=== PATIENT | female | born 1995 | race Caucasian/White ===

== ENCOUNTER 2022-11-01 04:10 | Inpatient (IN) | payer OTHER ==
[2022-11-01] MEDS ORDERED: Ondansetron PF 4 MG/2 ML Vial IVP PRN ×4 (05:30→21:50)
[2022-11-01] MEDS ORDERED: hydrALAZINE 20 MG/ML VIAL SLOW IVP PRN ×2 (05:30→21:50)
[2022-11-01] MEDS ORDERED: Promethazine HCl 25 MG/ML VIAL IM PRN ×3 (05:30→18:11)
[2022-11-01] MEDS ORDERED: Acetaminophen 500 MG TAB PO PRN (05:30)
[2022-11-01] MEDS ORDERED: Misoprostol 200 MCG TAB PR PRN ×2 (05:30→21:50)
[2022-11-01] MEDS ORDERED: Tranexamic Acid 1,000 MG in Sodium Chloride 0.9% 250 ML 250 ML IVPB PRN (05:30)
[2022-11-01] MEDS ORDERED: Methylergonovine 0.2 MG/ML VIAL IM PRN ×2 (05:30→21:50)
[2022-11-01] MEDS ORDERED: Docusate 100 MG CAP PO PRN (05:30)
[2022-11-01] MEDS ORDERED: Butorphanol Tartrate 1 MG/ML VIAL SLOW IVP PRN (05:30)
[2022-11-01] MEDS ORDERED: Ibuprofen 800 MG TAB PO PRN (05:33)
[2022-11-01] MEDS ORDERED: Lidocaine 1% (PF) 30 ML VIAL SC PRN (05:33)
[2022-11-01 05:50] LABS: Hemoglobin 13.4 g/dL (12.0-15.5); Mean Corpuscular HGB CONC 34.4 g/dL (32.0-36.0); Mean Corpuscular Hemoglobin 30.2 pg (27.0-33.0); Mean Corpuscular Volume 87.8 fl (81.6-98.3); Mean Platelet Volume 11.2 fl (7.4-10.4); Platelet Count 230 10x3/uL (150-450); RBC Distribution Width 13.7 % (11.5-14.5); Red Blood Cell (RBC) Count 4.44 10x6/uL (3.90-5.03)
[2022-11-01 05:55] VITALS: BMI 27.8
[2022-11-01] MEDS ORDERED: Fentanyl 2 mcg/Bup 0.1% Cadd 100 ML ONE (05:59)
[2022-11-01] MEDS ORDERED: NS w/ Oxytocin 30 units 500 ML IV SCH (06:00)
[2022-11-01 06:05] LABS: ALT (SGPT) 18 U/L (8-55); AST (SGOT) 19 U/L (5-34); Albumin 3.8 g/dL (3.5-5.0); Alkaline Phosphatase 110 U/L (40-110); Anion Gap 17 mmol/L (10-20); BUN (Urea Nitrogen) 7 mg/dL (7.0-18.7); Bilirubin, Total 0.8 mg/dL (0.2-1.2); Calc. Creatinine Clearance 164 mL/min (70-130); Calcium 9.1 mg/dL (7.8-10.44); Carbon Dioxide 16 mmol/L (22-29); Chloride 103 mmol/L (98-107); Estimated GFR 124; Globulin 2.8 g/dL (2.4-3.5); Glucose 112 mg/dL (70-105); Potassium 3.6 mmol/L (3.5-5.1); Protein, Total 6.6 g/dL (6.0-8.3); Sodium 132 mmol/L (136-145)
[2022-11-01 06:28] LABS: Syphilis Antibody Nonreactive (Nonreactive); Syphilis Antibody Index 0.04 S/CO (<1.00 Non-Reactive)
[2022-11-01 06:29] LABS: HBSAg Index 0.18 S/CO (0-0.99); Hep B Surf Ag Non-Reactive S/CO (NonReactive)
[2022-11-01] MEDS ORDERED: Lactated Ringer's 500 ML IV PRN (07:00)
[2022-11-01] MEDS ORDERED: ePHEDrine Sulfate 50 MG/10 ML VIAL SLOW IVP PRN (07:00)
[2022-11-01] MEDS ORDERED: Naloxone HCl 0.4 mg/ml Vial IVP PRN ×4 (07:00→18:11)
[2022-11-01] MEDS ORDERED: Fentanyl 2 mcg/Bupivacaine 0.1% Cassette 100 ML EPIDURAL SCH (07:00)
[2022-11-01] MEDS ORDERED: Communication Order-Pharmacy FS SCH ×2 (07:00→18:15)
[2022-11-01] MEDS ORDERED: Acetaminophen 325 MG TAB PO PRN (07:00)
[2022-11-01] MEDS ORDERED: Moisturizing Cream (Eucerin) 113 GM JAR TOP PRN ×2 (07:00→18:11)
[2022-11-01] MEDS ORDERED: diphenhydrAMINE 50 MG/ML VIAL IVP PRN ×2 (07:00→18:11)
[2022-11-01] MEDS ORDERED: Piperacillin/Tazobactam 3.375 GM in Sodium Chloride 0.9% 100 ML IVPB SCH (08:00)
[2022-11-01] MEDS ORDERED: Gentamicin 380 MG, Admixture Fee 1 EACH in Sodium Chloride 0.9% 100 ML IVPB SCH (09:00)
[2022-11-01 10:12] LABS: HIV (1/2) Antibody/Antigen Non-Reactive (NonReactive); HIV 1/2 INDEX 0.07 S/CO (<1.00)
[2022-11-01 10:15] LABS: SARS-CoV-2 NAA Rapid Test Not Detected (NotDetected)
[2022-11-01] MEDS: Piperacillin/Tazobactam 3.375 GM in Sodium Chloride 0.9% 100 ML IVPB SCH ×2 (12:19→20:11)
[2022-11-01] MEDS ORDERED: Azithromycin 500 MG VIAL ONE (16:24)
[2022-11-01] MEDS ORDERED: Morphine PF 10 MG/10 ML VIAL ONE (16:41)
[2022-11-01] MEDS ORDERED: Oxytocin 10 UNITS/ML VIAL ONE ×3 (16:41→17:54)
[2022-11-01] MEDS ORDERED: Ketorolac Tromethamine 30 MG/ML VIAL ONE (16:41)
[2022-11-01] MEDS ORDERED: Phenylephrine 40 MG/NS 250 ML 250 ML ONE (16:41)
[2022-11-01] MEDS ORDERED: Lidocaine 2% MPF 10 ML AMP (For Epidural Use) ONE (16:41)
[2022-11-01] MEDS ORDERED: Tranexamic Acid 1,000 MG/10 ML VIAL ONE (17:02)
[2022-11-01] MEDS ORDERED: Misoprostol 200 MCG TAB ONE (17:02)
[2022-11-01] MEDS ORDERED: Methylergonovine 0.2 MG/ML VIAL ONE (17:02)
[2022-11-01] MEDS ORDERED: Ondansetron PF 4 MG/2 ML Vial ONE (17:04)
[2022-11-01 17:28] LABS: RapidComm Collect By CBN; pH (Cord, venous) 7.406 (7.250-7.350)
[2022-11-01] MEDS ORDERED: Naloxone HCl 0.4 mg/ml Vial IV PRN (18:11)
[2022-11-01] MEDS ORDERED: Ondansetron HCl/PF 4 MG/2 ML Vial IVP PRN (18:11)
[2022-11-01] MEDS ORDERED: HYDROmorphone 2 MG/ML VIAL SLOW IVP PRN (18:11)
[2022-11-01] MEDS ORDERED: Meperidine HCl/PF 25 MG/ML VIAL SLOW IVP PRN (18:11)
[2022-11-01] MEDS ORDERED: Ketorolac Tromethamine 30 MG/ML VIAL IVP PRN (18:11)
[2022-11-01] MEDS ORDERED: Promethazine HCl 25 MG SUPP PR PRN (18:11)
[2022-11-01] MEDS ORDERED: Fentanyl 100 MCG/2 ML VIAL SLOW IVP PRN (18:11)
[2022-11-01] MEDS ORDERED: Ketorolac Tromethamine 30 MG/ML VIAL IVP SCH (18:15)
[2022-11-01] MEDS: Lactated Ringer's 1,000 ML IV SCH (19:02)
[2022-11-01] MEDS ORDERED: Boostrix 0.5 ML (Tdap) VIAL (>/=7 yrs of age) IM ONE (21:50)
[2022-11-01] MEDS ORDERED: Lanolin Ointment 7 GM TUBE TOP PRN (21:50)
[2022-11-01] MEDS ORDERED: diphenhydrAMINE 25 MG CAP PO PRN (21:50)
[2022-11-01] MEDS ORDERED: Ferrous Sulfate 325 MG TAB PO SCH (22:30)
[2022-11-02] MEDS: Simethicone Chewable 80 MG TAB PO PRN ×3 (04:30→21:20)
[2022-11-02] MEDS: Piperacillin/Tazobactam 3.375 GM in Sodium Chloride 0.9% 100 ML IVPB SCH ×3 (04:31→21:22)
[2022-11-02 06:25] LABS: Hemoglobin 11.5 g/dL (12.0-15.5); Mean Corpuscular HGB CONC 33.7 g/dL (32.0-36.0); Mean Corpuscular Hemoglobin 29.9 pg (27.0-33.0); Mean Corpuscular Volume 88.8 fl (81.6-98.3); Platelet Count 177 10x3/uL (150-450); RBC Distribution Width 13.9 % (11.5-14.5); Red Blood Cell (RBC) Count 3.84 10x6/uL (3.90-5.03); White Blood Cell (WBC) Count 14.6 10x3/uL (3.5-10.5)
[2022-11-02] MEDS ORDERED: Lidocaine 2% PF 5 ML VIAL ONE (08:00)
[2022-11-02] MEDS ORDERED: ePHEDrine Sulfate 50 MG/10 ML VIAL ONE (08:00)
[2022-11-02] MEDS ORDERED: Bupivacaine 0.25% HCL 30 ML VIAL ONE (08:00)
[2022-11-02] MEDS ORDERED: HYDROcodone/Acetaminophen 5/325 mg Tablet PO PRN ×2 (08:01)
[2022-11-02] MEDS: Prenatal Vitamin 1 TAB PO SCH (08:25)
[2022-11-02] MEDS ORDERED: Gentamicin Sulfate 380 MG in Sodium Chloride 0.9% 100 ML IVPB SCH (09:00)
[2022-11-02] MEDS ORDERED: Acetaminophen/Codeine 30-300mg Tablet PO PRN (10:49)
[2022-11-02] MEDS: Acetaminophen/Codeine 30-300mg Tablet PO PRN ×2 (15:12→21:21)
[2022-11-02] MEDS: Ferrous Sulfate 325 MG TAB PO SCH ×2 (15:43→21:54)
[2022-11-02] MEDS: Docusate 100 MG CAP PO SCH (21:20)
[2022-11-02] MEDS: Ibuprofen 800 MG TAB PO SCH (21:20)
[2022-11-03] MEDS: Acetaminophen/Codeine 30-300mg Tablet PO PRN ×2 (03:30→10:29)
[2022-11-03] MEDS: Ibuprofen 800 MG TAB PO SCH (05:19)
[2022-11-03] MEDS: Ferrous Sulfate 325 MG TAB PO SCH (09:52)
[2022-11-03] MEDS: Prenatal Vitamin 1 TAB PO SCH (10:29)
[2022-11-03] MEDS: Docusate 100 MG CAP PO SCH (10:29)
[2022-11-03 12:03] VITALS: BP 118/75; TEMP 98.3
[2022-11-05 09:07] LABS: RapidComm Collect By CBN
== END 2022-11-03 12:40 | disposition home or self-care (01) | DRG 787 ==
LOC: CSHLD/OP 04:10 → CSHLD 05:43 → CSHPP 20:59
PROVIDERS: ADMIT Obstetrics & Gynecology; ATTEND Obstetrics & Gynecology
PROC: 10D00Z1 Extraction of Products of Conception, Low, Open Approach (ICD-10-PCS; principal; 2022-11-01)
PROC: 10H07YZ Insertion of Other Device into Products of Conception, Via Natural or Artificial Opening (ICD-10-PCS; 2022-11-01)
DX: O42.12 Full-term premature rupture of membranes, onset of labor more than 24 hours following rupture (principal); O72.1 Other immediate postpartum hemorrhage; Z20.822 Contact with and (suspected) exposure to COVID-19; O48.0 Post-term pregnancy; Z3A.41 41 weeks gestation of pregnancy; Z37.0 Single live birth; O36.63X0 Maternal care for excessive fetal growth, third trimester, not applicable or unspecified; O62.0 Primary inadequate contractions; O69.81X0 Labor and delivery complicated by cord around neck, without compression, not applicable or unspecified; K43.9 Ventral hernia without obstruction or gangrene; O99.63 Diseases of the digestive system complicating the puerperium; Z90.49 Acquired absence of other specified parts of digestive tract; Z79.899 Other long term (current) drug therapy
CPT/HCPCS: 36415; 51702; 80053; 82805; 85027; 86780; 86850; 86900; 86901; 87340; 87389; 88305; 88307; J0456; J1580; J1885; J2001; J2274; J2405; J2543; J2590; J3490; S0020; U0002

== ENCOUNTER 2022-11-07 13:20 | Emergency (ER) | payer OTHER ==
[2022-11-07 14:59] LABS: #Eosinphils 0.2 10x3/uL (0.0-0.5); #Monocytes 0.6 10x3/uL (0.0-1.1); #Neutrophils 8.3 10x3/uL (1.5-8.4); %Basophils 0.3 % (0.0-2.0); %Eosinophils 1.3 % (0.0-6.0); %Lymphocytes 22.3 % (18.0-47.0); %Monocytes 5.2 % (0.0-10.0); Hemoglobin 13.4 g/dL (12.0-15.5); Mean Corpuscular HGB CONC 33.8 g/dL (32.0-36.0); Mean Corpuscular Hemoglobin 30.7 pg (27.0-33.0); Mean Corpuscular Volume 90.8 fl (81.6-98.3); Mean Platelet Volume 9.2 fl (7.4-10.4); Platelet Count 309 10x3/uL (150-450); RBC Distribution Width 13.2 % (11.5-14.5); Red Blood Cell (RBC) Count 4.37 10x6/uL (3.90-5.03); White Blood Cell (WBC) Count 11.9 10x3/uL (3.5-10.5)
[2022-11-07 15:23] LABS: ALT (SGPT) 37 U/L (8-55); AST (SGOT) 20 U/L (5-34); Albumin 3.8 g/dL (3.5-5.0); Alkaline Phosphatase 110 U/L (40-110); Anion Gap 17 mmol/L (10-20); BUN (Urea Nitrogen) 10 mg/dL (7.0-18.7); Bilirubin, Total 0.3 mg/dL (0.2-1.2); Calc. Creatinine Clearance 0 mL/min (70-130); Calcium 9.5 mg/dL (7.8-10.44); Carbon Dioxide 20 mmol/L (22-29); Chloride 110 mmol/L (98-107); Estimated GFR 113; Globulin 3.3 g/dL (2.4-3.5); Glucose 80 mg/dL (70-105); Potassium 3.8 mmol/L (3.5-5.1); Protein, Total 7.1 g/dL (6.0-8.3); Sodium 143 mmol/L (136-145)
== END 2022-11-07 16:12 | disposition home or self-care (01) ==
LOC: CSHERS 13:20
DX: I10 Essential (primary) hypertension (principal); D72.829 Elevated white blood cell count, unspecified
CPT/HCPCS: 80053; 85025; 99283

== ENCOUNTER 2022-11-19 09:34 | Outpatient (CLI) | payer OTHER ==
[2022-11-19] MEDS ORDERED: Iopamidol 300 61% 100 ML VIAL FS ONE (10:46)
== END 2022-11-19 09:35 | disposition home or self-care (01) ==
LOC: CSHCT 09:34
PROVIDERS: ATTEND Student in an Organized Health Care Education/Training Program
DX: C80.1 Malignant (primary) neoplasm, unspecified (principal); R18.8 Other ascites; N20.0 Calculus of kidney
CPT/HCPCS: 74177

== ENCOUNTER 2023-04-17 08:45 | Outpatient (CLI) | payer BC | END 2023-04-17 08:46 | disposition home or self-care (01) | LOC: CSHCT 08:45 | PROVIDERS: ATTEND Nurse Practitioner Family | DX: C56.9 Malignant neoplasm of unspecified ovary (principal); C48.2 Malignant neoplasm of peritoneum, unspecified | CPT/HCPCS: 74177 ==

== ENCOUNTER 2023-07-10 07:49 | Outpatient (CLI) | payer BC ==
[2023-07-10] MEDS ORDERED: Iopamidol 300 61% 100 ML VIAL FS ONE (09:24)
== END 2023-07-10 07:50 | disposition home or self-care (01) ==
LOC: CSHCT 07:49
PROVIDERS: ATTEND Nurse Practitioner Family
DX: C56.1 Malignant neoplasm of right ovary (principal)
CPT/HCPCS: 74177

== ENCOUNTER 2024-06-22 07:59 | Outpatient (CLI) | payer OTHER ==
[2024-06-22] MEDS ORDERED: Iopamidol 300 61% 100 ML VIAL FS ONE (09:45)
== END 2024-06-22 08:00 | disposition home or self-care (01) ==
LOC: CSHCT 07:59
PROVIDERS: ATTEND Obstetrics & Gynecology Gynecologic Oncology
DX: C56.1 Malignant neoplasm of right ovary (principal); R93.5 Abnormal findings on diagnostic imaging of other abdominal regions, including retroperitoneum; Z90.710 Acquired absence of both cervix and uterus
CPT/HCPCS: 71260; 74177

== ENCOUNTER 2024-09-14 12:10 | Outpatient (CLI) | payer SELFPAY ==
[2024-09-14 14:50] LABS: Anion Gap 13 mmol/L (10-20); BUN (Urea Nitrogen) 16 mg/dL (7.0-18.7); Calc. Creatinine Clearance 0 mL/min (70-130); Calcium 9.8 mg/dL (7.8-10.44); Carbon Dioxide 23 mmol/L (22-29); Chloride 107 mmol/L (98-107); Estimated GFR 107; Glucose 97 mg/dL (70-105); Potassium 4.1 mmol/L (3.5-5.1); Sodium 139 mmol/L (136-145)
== END 2024-09-14 12:11 | disposition home or self-care (01) ==
LOC: CSHLAB 12:10
PROVIDERS: ATTEND Surgery
DX: Z01.818 Encounter for other preprocedural examination (principal); C56.9 Malignant neoplasm of unspecified ovary
CPT/HCPCS: 80048; 93005; 93010